=== PATIENT | male | born 1965 | race Caucasian/White ===

== ENCOUNTER 2024-07-28 10:17 | Inpatient (IN) | payer MEDICAID ==
[~2024-07-28] VITALS: Ht 175.3 cm; Wt 67.2 kg
[~2024-07-28 10:17] MED LIST: IBUP-1456 PO
[2024-07-28] MEDS: SODIUM CHLORIDE 0.9% 1,000 ML IV ONE ×2 (11:01→13:59)
[2024-07-28] MEDS: ONDANSETRON HCL 4 MG/2 ML VIAL IV ONE (11:01)
[2024-07-28] MEDS: MORPHINE SULFATE 4 MG/ML SYR/VIAL IV ONE (11:02)
[2024-07-28 11:18] LABS: Hematocrit 53.6 % (41.0-53.0); Hemoglobin 18.3 g/dL (13.5-17.5); Mean Corpuscular Hemoglobin 31.4 pg (28.0-32.0); Mean Corpuscular Hgb Conc. 34.2 g/dL (32.0-36.0); Mean Corpuscular Volume 91.9 fL (80.0-100.0); Platelet Count (auto) 260 10^3/uL (140-450); Red Blood Cells 5.83 10^6/uL (4.5-5.90); Red Cell Distribution Width 13.8 % (11.8-14.3)
[2024-07-28 11:20] LABS: Potassium 4.9 mmol/L (3.5-5.1)
--- NOTE | 2024-07-28 11:20 | ED.PDOC ---
Musculoskeletal HPI Comments 59 year old male presents to the ED with chief complaint of left knee pain. Patient reports that he was seen in the ED on initially for a left knee injury s/p fall. Patient relays that he had been diagnosed with a displaced patella fracture and an appointment set up with Dr. Martel on Monday, however, his pain has been unbearable so he called his office today. Patient states he was advised by Dr. Martel to come into the ED for admission to have the surgery for his knee performed tomorrow. Patient denies any numbness, weakness, chest pain, or SOB. Chief Complaint: Lower Extremity Time Seen by MD: 11:12 Primary Care Provider: TAMANNA Andre Notes: Nurses Notes, Medications, Allergies Allergies: Coded Allergies: NO KNOWN ALLERGIES (Unverified , 07/25/24) Home Meds Active Scripts Ibuprofen (Ibuprofen) 800 Mg Tab, 1 TAB PO TID, #30 TAB Prov:ELE LEACH PA 07/25/24 Reported Medications Omeprazole Magnesium (Omeprazole) 20 Mg Tab, 20 MG PO, TAB 07/28/24 Nitroglycerin (Intra-Anal) (Nitroglycerin) 0.4 % Oin, 0.4 % WI, OIN 07/28/24 Information Source: Patient Mode of Arrival: Ambulatory Location: Left Extremity Location: Knee Timing: Days Prehospital treatment: None Severity: Severe Able to Move Extremity: No Bear Weight: Limited Pain: Severe Mechanism: Blunt Trauma Circumstances: Fall Onset of Symptoms: After Trauma Symptoms: Swelling, Pain DVT Risk Factors: NONE Last Tetanus: Unknown Past Medical History PAST MEDICAL HISTORY: COPD Surgical History: Denies all surgeries Family History Family History: Reviewed,noncontributory to illness Social History Smoker: Cigarettes Alcohol: Denies ETOH Use Drugs: Denies Drug Use Lives In: Home Constitutional: denies: chills, diaphoresis, fatigue, fever, malaise, sweats, weakness, others EENTM: denies: blurred vision, double vision, ear bleeding, ear discharge, ear drainage, ear pain, ear ringing, eye pain, eye redness, hearing loss, mouth pain, mouth swelling, nasal discharge, nose bleeding, nose congestion, nose pain, photophobia, tearing, throat pain, throat swelling, voice changes, others Respiratory: denies: cough, hemoptysis, orthopnea, SOB at rest, shortness of breath, SOB with excertion, stridor, wheezing, others Cardiovascular: denies: chest pain, dizzy spells, diaphoresis, Dyspnea on exertion, edema, irregular heart beat, left arm pain, lightheadedness, palpi tations, PND, syncope, others Gastrointestinal: denies: abdomen distended, abdominal pain, blood streaked bowels, constipated, diarrhea, dysphagia, difficulty swallowing, hematemesis, melena, nausea, poor appetite, poor fluid intake, rectal bleeding, rectal pain, vomiting, others Genitourinary: denies: burning, dysuria, flank pain, frequency, hematuria, incontinence, penile discharge, penile sore, pain, testicle pain, testicle swelling, urgency, others Neurological: denies: dizziness, fainting, headache, left sided numbness, left sided weakness, numbness, paresthesia, pre-existing deficit, right sided numbness, right sided weakness, seizure, speech problems, tingling, tremors, weakness, others Musculoskeletal: reports: others (Left knee pain); denies: back pain, gout, joint pain, joint swelling, muscle pain, muscle stiffness, neck pain Integumetry: denies: bruises, change in color, change in hair/nails, dryness, laceration, lesions, lumps, rash, wounds, others Allergic/Immunocompromised: denies: Difficulty Healing, Frequent Infections, Hives, Itching, others Hematologic/Lymphatic: denies: anemia, blood clots, easy bleeding, easy bruising, swollen glands, others Endocrine: denies: excessive hunger, excessive sweating, excessive thirst, excessive urination, flushing, intolerance to cold, intolerance to heat, unexplained weight gain, unexplained weight loss, others Psychiatric: denies: anxiety, bipolar disorder, depression, hopeless, panic disorder, schizophrenia, sleepless, suicidal, others All Other Systems: Reviewed and Negative Physical Exam General Appearance: No Apparent Distress, Normal HEENT: Normal ENT Inspection, PERRL/EOMI Neck: Full Range of Motion, Non-Tender, Normal, Normal Inspection Respiratory: Chest Non-Tender, Lungs Clear, No Accessory Muscle Use, No Respiratory Distress, Normal Breath Sounds Cardiovascular: No Edema, No JVD, No Murmur, No Gallop, Normal Peripheral Pulses, Regular Rate/Rhythm Breast Exam: Deferred Gastrointestinal: No Organomegaly, Non Tender, No Pulsatile Mass, Normal Bowel Sounds, Soft Genitalia: Deferred Pelvic: Deferred Rectal: Deferred Extremities: No calf tenderness, Normal capillary refill, Normal inspection, Normal range of motion, No pedal edema, Other (Left knee swelling and tenderness) Musculoskeletal : Apperance: Normal Neurologic: Alert, computer programmer II-XII nml as Tested, No Motor Deficits, Normal Affect, Normal Mood, No Sensory Deficits Cerebellar Function: Normal Reflexes: Normal Skin: Dry, Normal Color, Warm Lymphatic: No Adenopathy Was a procedure done? Was a procedure done?: No Differential Diagnosis EXT Differential Diagnosis: Fracture X-Ray, Labs, Meds, VS Vital Signs Date Time Temp Pulse Resp B/P (MAP) Pulse Ox O2 Delivery O2 Flow Rate FiO2 07/28/24 13:50 97.6 95 17 102/64 (77) 99 97.6 07/28/24 11:32 70 15 145/72 07/28/24 11:10 Room Air* 0 21 07/28/24 11:09 97.8 98 17 132/80 (97) 99 97.8 07/28/24 11:02 98 17 132/80 07/28/24 10:38 97.8 100 19 144/81 (102) 95 Lab Test 07/28/24 10:50 Range/Units White Blood Count 7.0 4.4-10.8 10^3/uL Red Blood Count 5.83 4.5-5.90 10^6/uL Hemoglobin 18.3 H 13.5-17.5 g/dL Hematocrit 53.6 H 41.0-53.0 % Mean Corpuscular Volume 91.9 80.0-100.0 fL Mean Corpuscular Hemoglobin 31.4 28.0-32.0 pg Mean Corpuscular Hemoglobin Concent 34.2 32.0-36.0 g/dL Red Cell Distribution Width 13.8 11.8-14.3 % Platelet Count 260 140-450 10^3/uL Mean Platelet Volume 7.1 6.9-10.8 fL Neutrophils (%) (Auto) 37.0-80.0 % Lymphocytes (%) (Auto) 10.0-50.0 % Monocytes (%) (Auto) 0.0-12.0 % Basophils (%) (Auto) 0.0-2.0 % Neutrophils # (Auto) 1.6-8.6 10 ^3/uL Lymphocytes # (Auto) 0.4-5.4 10 ^3/uL Monocytes # (Auto) 0-1.3 10 ^3/uL Differential Total Cells Counted 100.0 100 Neutrophils % (Manual) 72 37.0-80.0 Band Neutrophils % (Manual) 1 Lymphocytes % (Manual) 12 10.0-50.0 Monocytes % (Manual) 15 H 0-12 Eosinophils % (Manual) 0 0-7 Basophils % (Manual) 0 0.0-2.0 Metamyelocytes % (manual) 0 Myelocytes % (Manual) 0 Promyelocytes % (Manual) 0 Blast Cells % (Manual) 0 Reactive Lymphocytes 0 Platelet Estimate Adequate Red Blood Cell Morphology Normal Sodium Level 122 L 136-145 mmol/L Potassium Level 4.9 3.5-5.1 mmol/L Chloride Level 90 L 98-107 mmol/L Carbon Dioxide Level 26 20-31 mmol/L Anion Gap 6 5-15 Blood Urea Nitrogen 6 L 9-23 mg/dL Creatinine 1.02 0.700-1.30 mg/dL Glomerular Filtration Rate Calc 84 >90 mL/min BUN/Creatinine Ratio 5.9 L 10.0-20.0 Serum Glucose 105 74-106 mg/dL Calcium Level 9.7 8.7-10.4 mg/dL Time of 1ST Reevaluation: 12:12 Reevaluation 1ST: Unchanged Patient Education/Counseling: Diagnosis, Treatment Family Education/Counseling: No Family Present Additional Information The following tests were ordered, and results were reviewed by me: CBC, BMP Additional Information was gathered from interviewing the following independent historians: None I reviewed and agreed with the following test results read by other providers: None I discussed treatment and results with medical personnel. Departure 1 Departure Time of Disposition: 17:48 (Patient with displaced fracture left patella and uncontrolled pain. We will admit patient for further workup and expert consultation) Impression: Primary Impression: Displaced fracture of left patella Qualified Codes: S82.042K - Displaced comminuted fracture of left patella, subsequent encounter for closed fracture with nonunion Disposition: ADMITTED INPATIENT Admit to: Med Surg Condition: Serious Critical Care Note Critical Care Time?: No Stability Stability form required: No Heart Score Heart Score: Heart Score Response (Comments) Value History N/A 0 EKG N/A 0 Age N/A 0 Risk Factors N/A 0 Troponin N/A 0 Total 0 I personally scribed for CARLOS RIVERA MD ([email or web address]) on 07/28/24 at 11:20. Electronically submitted by Misbah Rosario ([email or web address]). CARLOS RIVERA MD Jul 28, 2024 11:20
[2024-07-28 11:21] LABS: Anion Gap 6 (5-15); Carbon Dioxide 26 mmol/L (20-31); Chloride 90 mmol/L (98-107); Sodium 122 mmol/L (136-145)
[2024-07-28 11:22] LABS: Calcium 9.7 mg/dL (8.7-10.4)
[2024-07-28 11:24] LABS: Basophils % (manual) 0 (0.0-2.0); Blast Cells 0; Eosinophils % (manual) 0 (0-7); Metamyelocytes % 0; Myelocytes % 0; Promyelocytes % 0; Reactive Lymphocytes 0
[2024-07-28 11:26] LABS: BUN/Creatinine Ratio 5.9 (10.0-20.0); Glucose 105 mg/dL (74-106)
[2024-07-28 11:29] LABS: Blood Urea Nitrogen 6 mg/dL (9-23)
[2024-07-28 12:09] LABS: Band Neutrophils % (manual) 1; Lymphocytes % (manual) 12 (10.0-50.0); Monocytes % (manual) 15 (0-12)
[2024-07-28 12:10] LABS: Platelet Estimate Adequate; RBC Morphology Normal
[2024-07-28] MEDS ORDERED: HYDROcodone-ACET 5/325MG TAB PO PRN (14:30)
[2024-07-28] MEDS ORDERED: ACETAMINOPHEN 325 MG TAB PO PRN (14:30)
[2024-07-28] MEDS ORDERED: ONDANSETRON HCL 4 MG/2 ML VIAL IV PRN (14:30)
--- NOTE | 2024-07-28 14:31 | DVHHP2 ---
History of Present Illness Reason for Visit: Left lower extremity pain History of Present Illness This 59-year-old male with past medical history of COPD and recent patellar fracture presents in the ED with a chief complaint of left knee pain. The patient reports was seen in this ED on and was found to have acute disp laced patella fracture status post mechanical fall. The patient states he had an appointment with ortho Dr. Martel tomorrow but due to the uncontrolled pain the patient decided to come to the emergency department for pain control. Past Medical History COPD Past Surgical History Denies Family History Reviewed, non-contributory to the management of this case. Past Social History Admits to tobacco use one pack per day Denies EtOH or illicit drug use Review of Systems Constitutional: Yes: Weakness; No: Fever, Chills, Sweats, Malaise, Other Eyes: No: Pain, Vision change, Conjunctivae inflammation, Eyelid inflammation, Other, Redness ENT: No: Ear pain, Ear discharge, Nose pain, Nose discharge, Nose congestion, Mouth pain, Mouth swelling, Throat pain, Throat swelling, Other Respiratory: No: Cough, Dry, Shortness of breath, SOB with excertion, Wheezing, Hemoptysis, Pleuritic Pain, Sputum, Wheezing, Other Cardiovascular: No: Chest Pain, Palpitations, Orthopnea, Paroxysmal Noc. Dyspnea, Edema, Lt Headedness, Other Gastrointestinal: No: Nausea, Vomiting, Abdominal Pain, Diarrhea, Constipation, Melena, Hematochezia, Other Genitourinary: No Dysuria, No Frequency, No Incontinence, No Hematuria, No Retention, No Other Musculoskeletal: other (Left lower extremity, knee pain); No: neck pain, shoulder pain, arm pain, back pain, hand pain, leg pain, foot pain Skin: No: Rash, Lesions, Jaundice, Bruising, Other Neurological: No: Weakness, Numbness, Incoordination, Change in speech, Confusion, Seizures, Other Allergies: Coded Allergies: NO KNOWN ALLERGIES (Unverified , 07/25/24) Exam Vital Signs Vital Signs Date Time Temp Pulse Resp B/P (MAP) Pulse Ox O2 Delivery O2 Flow Rate FiO2 07/28/24 13:50 97.6 95 17 102/64 (77) 99 97.6 07/28/24 11:10 Room Air* 0 21 General Appearance: Alert, Oriented X3, Cooperative, mild distress HEENT: Atraumatic, PERRLA, EOMI, Mucous membr. moist/pink Respiratory: Clear to auscultation, Normal air movement Cardiovascular: Regular rate, Normal S1, Normal S2 Abdominal: Normal bowel sounds, Soft, No tenderness, No hepatospenomegaly Extremities: No clubbing, No edema, Normal pulses, Other (Left knee tenderness, using crutches) Skin: No rashes, No breakdown, No significant lesion Neuro: Normal speech, Normal tone, Sensation intact Psych/Mental Status: Mental status NL Labs/Xrays Labs Test 07/28/24 10:50 Range/Units White Blood Count 7.0 4.4-10.8 10^3/uL Red Blood Count 5.83 4.5-5.90 10^6/uL Hemoglobin 18.3 H 13.5-17.5 g/dL Hematocrit 53.6 H 41.0-53.0 % Mean Corpuscular Volume 91.9 80.0-100.0 fL Mean Corpuscular Hemoglobin 31.4 28.0-32.0 pg Mean Corpuscular Hemoglobin Concent 34.2 32.0-36.0 g/dL Red Cell Distribution Width 13.8 11.8-14.3 % Platelet Count 260 140-450 10^3/uL Mean Platelet Volume 7.1 6.9-10.8 fL Neutrophils (%) (Auto) 37.0-80.0 % Lymphocytes (%) (Auto) 10.0-50.0 % Monocytes (%) (Auto) 0.0-12.0 % Basophils (%) (Auto) 0.0-2.0 % Neutrophils # (Auto) 1.6-8.6 10 ^3/uL Lymphocytes # (Auto) 0.4-5.4 10 ^3/uL Monocytes # (Auto) 0-1.3 10 ^3/uL Differential Total Cells Counted 100.0 100 Neutrophils % (Manual) 72 37.0-80.0 Band Neutrophils % (Manual) 1 Lymphocytes % (Manual) 12 10.0-50.0 Monocytes % (Manual) 15 H 0-12 Eosinophils % (Manual) 0 0-7 Basophils % (Manual) 0 0.0-2.0 Metamyelocytes % (manual) 0 Myelocytes % (Manual) 0 Promyelocytes % (Manual) 0 Blast Cells % (Manual) 0 Reactive Lymphocytes 0 Platelet Estimate Adequate Red Blood Cell Morphology Normal Sodium Level 122 L 136-145 mmol/L Potassium Level 4.9 3.5-5.1 mmol/L Chloride Level 90 L 98-107 mmol/L Carbon Dioxide Level 26 20-31 mmol/L Anion Gap 6 5-15 Blood Urea Nitrogen 6 L 9-23 mg/dL Creatinine 1.02 0.700-1.30 mg/dL Glomerular Filtration Rate Calc 84 >90 mL/min BUN/Creatinine Ratio 5.9 L 10.0-20.0 Serum Glucose 105 74-106 mg/dL Calcium Level 9.7 8.7-10.4 mg/dL PROCEDURE(s): LKNE3 - L KNEE 3V XRAY REASON: FALL INJRY ORDER NUMBER(s): [id number], ACCESSION NUMBER(s): [id number] EXAM: XY L KNEE 3V XRAY HISTORY: FALL INJRY COMPARISON: None TECHNIQUE: 3 views of the left knee were performed. FINDINGS: There is an acute distracted transverse fracture through the patella. There is proximal migration of the superior fracture fragment and inferior migration of the inferior fracture fragment. Chondrocalcinosis is present in the lateral c ompartment. Status post ACL repair. Soft tissue swelling in the knee. IMPRESSION: 1. Acute displaced patellar fracture. MRI of the knee without contrast is recommended to assess for extensor mechanism injury. Assessment/Plan Assessment/Plan # Acute displaced patellar fracture, left Admit to m/s unit Consult Dr. Garrison Rest of the orders per surgical team # COPD DuoNeb O2 supplement as needed # tobacco dependence Nicotine patch Smoking cessation counseled High fall risk precaution Medical plan discussed with patient Plan discussed with: Patient My Orders Orders - ANUPAM MAN COMMUNICATIONS STATION MANAGER Procedure Category Date Status Time Admit ADMIT 07/28/24 Verified 14:20 Code Status CODE 07/28/24 Verified 14:20 Hydrocodone-Acet PHA 07/28/24 Verified 5/325mg Tab ([place] 14:30 Ondansetron Hcl PHA 07/28/24 Verified (Zofran) 14:30 Fall Risk Precautions JARET 07/28/[address] 14:20 Complete Blood Count LAB 07/29/24 Verified 04:00 Comprehensive LAB 07/29/24 Verified Metabolic Panel 04:00 Condition: Fair JARET 07/28/24 Verified 14:20 Acetaminophen Tablet PHA 07/28/24 Verified (Tylenol Tablet) 14:30 Morphine Sulfate PHA 07/28/24 Verified Injection 14:30 Date of Service: Jul 28, 2024 Billing Provider: ANUPAM MAN Common Visit Codes: [id number] INP/OBS CARE (HIGH) ANUPAM MANP Jul 28, 2024 14:31
[2024-07-28] MEDS: NICOTINE 14 MG/24HR TOPICAL PATCH TD ONE (14:37)
--- NOTE | 2024-07-28 14:59 | DVH ---
CHEST RADIOGRAPH Indication: cad Technique: Single frontal view of the chest was obtained Comparison: None FINDINGS: Lines and Tubes: None Lungs: Right perihilar infiltrate with interstitial prominence in the right base may represent pneumo mary. No prior studies for comparison Pleura: No effusion. No pneumothorax. Cardiomediastinal contours: Unremarkable Bones: No acute osseous abnormality. IMPRESSION: 1. Prominent perihilar markings and interstitial infiltrate in the right base. Acute versus chronic d isease should be correlated with prior chest x-rays
[2024-07-28 15:20] LABS: INR 0.98 (0.9-1.15); Partial Thromboplastin Time 30.3 SEC (24.5-34.5); Prothrombin Time 10.4 sec (9.3-11.8)
[2024-07-28 19:14] VITALS: BP 127/72; PULSE 95; RESP 20; TEMP 98.2; O2SAT 91
[2024-07-28 19:15] VITALS: PULSE 95; RESP 20; O2SAT 91
[2024-07-28 20:00] VITALS: PULSE 88; RESP 18; O2SAT 97
[2024-07-28] MEDS ORDERED: NITR0.4O2 PR (20:48)
[2024-07-28] MEDS ORDERED: OMEP-434 PO (20:48)
[2024-07-28 21:00] VITALS: BP 108/73; PULSE 88; RESP 19; TEMP 97.9; O2SAT 90
[2024-07-29] VITALS (22 sets, daily range): BP systolic 108–160; BP diastolic 68–99; PULSE 74–105; RESP 14–20; TEMP 97.5–98.7; O2SAT 88–100
[2024-07-29] MEDS: MORPHINE SULFATE INJ 2 MG/ml SYRG IV PRN (00:23)
[2024-07-29 06:44] LABS: Alanine Aminotransferase 26 U/L (7-40); Alkaline Phosphatase 84 U/L (46-116); Anion Gap 4 (5-15); Aspartate Aminotransferase 33 U/L (13-40); Blood Urea Nitrogen 10 mg/dL (9-23); Calcium 9.5 mg/dL (8.7-10.4); Carbon Dioxide 27 mmol/L (20-31); Chloride 101 mmol/L (98-107); Glucose 84 mg/dL (74-106)
[2024-07-29 06:45] LABS: Bilirubin, Total 1.1 mg/dL (0.2-1.0); Total Protein 6.3 g/dL (5.7-8.2)
[2024-07-29 06:53] LABS: Sodium 132 mmol/L (136-145)
--- NOTE | 2024-07-29 07:11 | DVHINCON2 ---
Date of service: Jul 28, 2024 Reason for Consultation Left patella fracture History of Present Illness 59 yo m who came in with displaced left patella fracture from 4 days ago. Patient states hes currently homeless and would have ride issues trying to do this as outpatient so came back to ER. No cp/sob/abd pain/nausea/vomiting. Family History: Patient reports no known family medical history. Allergies: Coded Allergies: NO KNOWN ALLERGIES (Unverified , 07/25/24) Home Meds Active Scripts Ibuprofen (Ibuprofen) 800 Mg Tab, 1 TAB PO TID, #30 TAB Prov:LEE LEACH PA 07/25/24 Reported Medications Omeprazole Magnesium (Omeprazole) 20 Mg Tab, 20 MG PO, TAB 07/28/24 Nitroglycerin (Intra-Anal) (Nitroglycerin) 0.4 % Oin, 0.4 % ME, OIN 07/28/24 Current Medications Current Medications Medications (Trade) Dose Ordered Sig/Sesar Route PRN Reason Start Time Stop Time Status Last Admin Acetaminophen/ Hydrocodone Bitart ([place] 5/325MG Tab) 1 tab Q4HP PRN PO MODERATE PAIN (4-6 PAIN SCALE) 07/28/24 14:30 Ondansetron HCl (Zofran) 4 mg Q4HP PRN IV NAUSEA / VOMITING 07/28/24 14:30 Acetaminophen (Tylenol Tablet) 650 mg Q6HP PRN PO PAIN SCALE 1-3 OR TEMP>100.4 07/28/24 14:30 Morphine Sulfate 2 mg Q4HPRN PRN IV SEVERE PAIN (7-10 PAIN SCALE) 07/28/24 14:30 07/29/24 04:30 Nicotine (Nicoderm 14MG/ 24HR) 1 patch DAILY TD 07/29/24 10:00 Review of Systems 10 point ROS is neg excpet per HPI Vital Signs Vital Signs Date Time Temp Pulse Resp B/P (MAP) Pulse Ox O2 Delivery O2 Flow Rate FiO2 07/29/24 05:00 97.5 92 18 111/71 (84) 89 97.5 07/28/24 20:00 Room Air* 0 21 Physical Exam NAD LLE: +swelling/effusion at knee +TA/GS/EHL/FHL foot wwp Labs/Diagnostic Data Labs Test 07/29/24 05:32 07/28/24 14:25 07/28/24 10:50 Range/Units Sodium Level 132 #L 136-145 mmol/L Potassium Level 5.0 3.5-5.1 mmol/L Chloride Level 101 # 98-107 mmol/L Carbon Dioxide Level 27 20-31 mmol/L Anion Gap 4 L 5-15 Blood Urea Nitrogen 10 9-23 mg/dL Creatinine 1.00 0.700-1.30 mg/dL Glomerular Filtration Rate Calc 86 >90 mL/min BUN/Creatinine Ratio 10.0 10.0-20.0 Serum Glucose 84 74-106 mg/dL Calcium Level 9.5 8.7-10.4 mg/dL Total Bilirubin 1.1 H 0.2-1.0 mg/dL Aspartate Amino Transferase (AST) 33 13-40 U/L Alanine Aminotransferase (ALT) 26 7-40 U/L Alkaline Phosphatase 84 46-116 U/L Total Protein 6.3 5.7-8.2 g/dL Albumin 4.0 3.2-4.8 g/dL Prothrombin Time 10.4 9.3-11.8 sec Prothrombin Time INR 0.98 0.9-1.15 Activated Partial Thromboplast Time 30.3 24.5-34.5 SEC Differential Total Cells Counted 100.0 100 Neutrophils % (Manual) 72 37.0-80.0 Band Neutrophils % (Manual) 1 Lymphocytes % (Manual) 12 10.0-50.0 Monocytes % (Manual) 15 H 0-12 Eosinophils % (Manual) 0 0-7 Basophils % (Manual) 0 0.0-2.0 Metamyelocytes % (manual) 0 Myelocytes % (Manual) 0 Promyelocytes % (Manual) 0 Blast Cells % (Manual) 0 Reactive Lymphocytes 0 Platelet Estimate Adequate Red Blood Cell Morphology Normal Plan/Recommendation 59 yo M with displaced left patella fracture 1. I had a long and thorough discussion with patient family regarding her condition. Nonoperative and operative management discussed in depth. Morbidity and mortality of hip fractures reviewed. Risks include but not exclusive to bleeding infection nerve injury hardware failure nonunion malunion chronic pain blood clots cardiac and pulmonary complications amputation and . They understand fracture may not heal and it may displace. 2. Plan for open reduction internal fixation of left patella fracture with Dr. Rajan/Delonte 3. NPO/IVF 4. pain control Plan discussed with: Patient EVI VARGAS MD Jul 29, 2024 07:11
[2024-07-29 08:28] LABS: Hemoglobin 16.7 g/dL (13.5-17.5); Mean Corpuscular Hemoglobin 31.9 pg (28.0-32.0); Mean Corpuscular Hgb Conc. 34.2 g/dL (32.0-36.0); Mean Corpuscular Volume 93.3 fL (80.0-100.0); Platelet Count (auto) 246 10^3/uL (140-450); Red Blood Cells 5.26 10^6/uL (4.5-5.90); Red Cell Distribution Width 13.7 % (11.8-14.3)
[2024-07-29 08:30] LABS: Basophils % (manual) 0 (0.0-2.0); Blast Cells 0; Metamyelocytes % 0; Myelocytes % 0; Promyelocytes % 0; Reactive Lymphocytes 0
[2024-07-29] MEDS: NICOTINE 14 MG/24HR TOPICAL PATCH TD SCH (08:42)
[2024-07-29 09:05] LABS: Band Neutrophils % (manual) 1; Eosinophils % (manual) 3 (0-7); Lymphocytes % (manual) 12 (10.0-50.0); Monocytes % (manual) 19 (0-12)
[2024-07-29 09:06] LABS: Platelet Estimate Adequate; RBC Morphology Normal
[2024-07-29 10:35] LABS: Urine Bacteria None Seen /hpf (None Seen)
[2024-07-29 11:04] LABS: Urine Blood Negative /uL (Negative); Urine Clarity Clear (Clear); Urine Color Light-Yellow (Yellow); Urine Protein, UAD Negative (Negative); Urine Specific Gravity 1.016 (1.001-1.035); Urine Squamous Epithelial Cell None Seen /hpf (<5); Urine Urobilinogen Normal (Negative); Urine WBC 2 /HPF (0-3)
[2024-07-29 11:13] LABS: Opiate Scree,Urine Pos (NEGATIVE)
[2024-07-29 11:20] LABS: Amphetamine Screen, Urine Neg (NEGATIVE); Barbiturate Scree,Urine Neg (NEGATIVE); Benzodiazephine Screen, Urine Neg (NEGATIVE); Cannabinoid Screen, Urine Neg (NEGATIVE); Cocaine Screen, Urine Neg (NEGATIVE); Phencyclidine Screen, Urine Neg (NEGATIVE)
[2024-07-29] MEDS: IPRATROPIUM BROM 0.5 MG/2.5ML INH SOL NEB SCH (11:27)
[2024-07-29] MEDS: LEVALBUTEROL HCL 1.25 MG/3 ML NEB NEB SCH (11:27)
[2024-07-29] MEDS ORDERED: KETAMINE 50mg/ML 1ml syringe ONE (13:55)
[2024-07-29] MEDS ORDERED: MIDAZOLAM HCL 2MG/2ML 2ml VIAL (1mg/ml) ONE (13:55)
[2024-07-29] MEDS ORDERED: PROPOFOL 10 MG/ML 20 ML IV ONE (13:55)
[2024-07-29] MEDS ORDERED: MORPHINE SULF PF 5 MG/10 ML VIAL ONE (13:55)
[2024-07-29] MEDS ORDERED: GLYCOPYRROLATE 0.2 MG/ML 1ML VIAL ONE (13:55)
[2024-07-29] MEDS ORDERED: fentaNYL CITRATE 100 MCG/2 ML VL ONE (13:55)
[2024-07-29] MEDS ORDERED: ONDANSETRON HCL 4 MG/2 ML VIAL ONE (13:55)
--- NOTE | 2024-07-29 14:17 | DVHPNRES ---
Progress Note Date Seen: Jul 29, 2024 Resident Creating Document: SANTA KRUGER RESIDENT Medical Necessity Reason Pt with a Central, PICC or Fol: No Subjective Review of Systems This is a 59-year-old male with PMH X of COPD, left patellar fracture when he was 18 years old status post repair, nicotine dependence, GERD, chronic hyponatremia who presented to the ER with a chief complaint of pain and swelling of the left knee. Patient initially presented to the ER on 07/26 he was diagnosed with left patellar displaced fracture and orthopedics recommended outpatient follow up. Consequently, he reported intractable pain and worsening swelling for which he presented again to the ER and was admitted to this facility. Orthopedics was consulted and patient was scheduled for internal fixation and open reduction 07/29. Chest x-ray shows left-sided infiltrate but patient refuses chest pain, phlegm or shortness of breaths. He reports chills but denies fever. Social history: Smokes 1.5 pack a day, drinks 2-3 beers Patient seen and examined at the bedside. NPO for surgical procedure. Objective vital signs Vital Sign Date Time Temp Pulse Resp B/P (MAP) Pulse Ox O2 Delivery O2 Flow Rate FiO2 07/29/24 11:33 74 18 100 07/29/24 11:27 Room Air* 0 21 07/29/24 11:27 97.5 111/71 97.5 Total Intake and Output 07/28/24 07/28/24 07/29/24 15:00 23:00 07:00 Intake Total 1000 ml 814 ml Output Total 525 ml Balance 1000 ml 289 ml medications Current Medications Medications Dose Ordered Sig/Sesar Route Start Time Stop Time Status Last Admin Dose Admin Acetaminophen/ Hydrocodone Bitart 1 tab Q4HP PRN PO 07/28/24 14:30 Ondansetron HCl 4 mg Q4HP PRN IV 07/28/24 14:30 Acetaminophen 650 mg Q6HP PRN PO 07/28/24 14:30 Morphine Sulfate 2 mg Q4HPRN PRN IV 07/28/24 14:30 07/29/24 04:30 2 MG Nicotine 1 patch DAILY TD 07/29/24 10:00 07/29/24 08:42 1 PATCH Levalbuterol HCl 0.625 mg Q6HR NEB 07/29/24 12:00 07/29/24 11:27 0.625 MG Ipratropium [place] 0.5 mg Q6HR NEB 07/29/24 12:00 07/29/24 11:27 0.5 MG Pantoprazole Sodium 40 mg DAILY@0600 PO 07/30/24 06:00 Examination Patient lying in bed, in no acute distress General: Well-built, afebrile, palor, mucosae are moist Cardiovascular: Regular S1 and S2. No murmurs, gallops or rubs. No JVD elevation. No pedal edema Respiratory: Normal B/L air entry on room air. Clear lung sounds on auscultation. Decreased expiratory phase Abdomen: Soft, nontender, nondistended, normoactive bowel sounds, no rebound tenderness, no organomegaly, no masses Genitourinary: Deferred MSK/skin: Mobilizes 4 limbs. Skin is dry and warm. Left knee is swollen, tender to deep palpation, bruise seen Neurological: No motor, no sensitive deficits, normal speech. Pupils are isocoric and reactive. Psych/Mental Status: A/Ox3 laboratory and microbiology Laboratory Tests 07/29/24 05:32 Test 07/29/24 05:32 Range/Units Serum Glucose 84 74-106 mg/dL Labs and/or images reviewed: Labs reviewed by me, Image(s) reviewed by me Problem List/Assessment/Plan Problem List/Assessment/Plan Acute displaced left patellar fracture Orthopedics consulted-Plan for open reduction internal fixation of left patella fracture with Dr. 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 Cabrera. Plan discussed with: Patient My Orders My Orders Orders - SANTA KRUGER RESIDENT Procedure Category Date Status Time Levalbuterol Hcl PHA 07/29/24 In Process (Xopenex Medneb) 12:00 Ipratropium Medneb PHA 07/29/24 In Process (Atrovent Medneb) 12:00 * Input Output Clerk CONS 07/29/24 Transmitted Consult Pantoprazole PHA 07/29/24 In Process (Protonix) 11:30 Pantoprazole Tablet PHA 07/30/24 In Process (Protonix Tablet) 06:00 Date of Service: Jul 29, 2024 Billing Provider: MILTON HINOJOSA MD Common Visit Codes: [id number] INP/OBS CARE(HIGH) SANTA KRUGER RESIDENT Jul 29, 2024 14:16 MILTON HINOJOSA MD Jul 30, 2024 23:38
[2024-07-29] MEDS ORDERED: BUPIVACAINE/DEXTROSE MPF 0.75% 2 ML AMP IT ONE (14:22)
[2024-07-29] MEDS: ceFAZolin 2 GM/D5W100ml 100 ML IV ONE (14:25)
[2024-07-29] MEDS: BUPIVACAINE 0.25% INJ 50ML VIAL ONE (14:52)
[2024-07-29] MEDS: TRANEXAMIC ACID 10 ML ONE (14:55)
[2024-07-29] MEDS ORDERED: HYDROCORTISONE SOD SUCC 100 MG/2ML INJ VIAL ONE (14:59)
[2024-07-29] MEDS ORDERED: DexAMETHasone SOD PHOS 10MG/1ML VIAL INJ IV PRN (15:45)
[2024-07-29] MEDS: ONDANSETRON HCL 4 MG/2 ML VIAL IV ONE (15:45)
[2024-07-29] MEDS ORDERED: NALOXONE HCL 0.4 MG/ML VIAL IV PRN (15:45)
[2024-07-29] MEDS ORDERED: diphenhdrAMINE HCL 50 MG/1 ML VL IV PRN (15:45)
[2024-07-29] MEDS ORDERED: ONDANSETRON HCL 4 MG/2 ML VIAL IV PRN (15:45)
[2024-07-29] MEDS: IPRATROPIUM BROM 0.5 MG/2.5ML INH SOL NEB ONE (15:45)
[2024-07-29] MEDS: ALBUTEROL SULF 2.5 MG/0.5ML(0.5%) NEB SOLN NEB ONE (15:45)
[2024-07-29] MEDS: ALBUTEROL SULF 2.5 MG/0.5ML(0.5%) NEB SOLN ONE (16:18)
[2024-07-29] MEDS ORDERED: hydrALAZINE HCL 20 MG/ML VL IV PRN (17:45)
[2024-07-29] MEDS: PANTOPRAZOLE 40 MG/10 ML VIAL INJ IV ONE (18:20)
--- NOTE | 2024-07-29 19:22 | DVH ---
EXAM: XY L KNEE 2V XRAY, XY C ARM FLUOROSCOPY UP TO 60MIN HISTORY: ORIF LEFT PATELLA TECHNIQUE: Intraoperative radiographs of the left knee were obtained. FLUOROSCOPY TIME: 27.0 seconds FLUOROSCOPY IMAGES: 7 TOTAL DOSE: 0.39 mGy COMPARISON: XY L KNEE 3V XRAY on DOS: 07/25/24 FINDINGS/IMPRESSION: Refer to intraoperative report for further evaluation.
[2024-07-29] MEDS: CEFEPIME 1GM/ 50ML 50 ML IV SCH (21:31)
[2024-07-30] VITALS (31 sets, daily range): BP systolic 116–156; BP diastolic 60–95; PULSE 76–101; RESP 14–20; TEMP 97.6–98.6; O2SAT 88–100
[2024-07-30] MEDS: PANTOPRAZOLE 40 MG TAB PO SCH (05:19)
[2024-07-30 07:43] LABS: Hematocrit 46.3 % (41.0-53.0); Hemoglobin 15.7 g/dL (13.5-17.5); Mean Corpuscular Hemoglobin 31.7 pg (28.0-32.0); Mean Corpuscular Hgb Conc. 33.9 g/dL (32.0-36.0); Mean Corpuscular Volume 93.5 fL (80.0-100.0); Platelet Count (auto) 229 10^3/uL (140-450); Red Blood Cells 4.96 10^6/uL (4.5-5.90); Red Cell Distribution Width 13.6 % (11.8-14.3); White Blood Cell 7.6 10^3/uL (4.4-10.8)
[2024-07-30 08:00] LABS: Anion Gap 8 (5-15); Carbon Dioxide 26 mmol/L (20-31)
[2024-07-30 08:06] LABS: BUN/Creatinine Ratio 8.8 (10.0-20.0); Glucose 105 mg/dL (74-106)
[2024-07-30 08:09] LABS: Blood Urea Nitrogen 7 mg/dL (9-23); Chloride 94 mmol/L (98-107); Sodium 128 mmol/L (136-145)
[2024-07-30 08:17] LABS: Band Neutrophils % (manual) 0; Basophils % (manual) 0 (0.0-2.0); Blast Cells 0; Eosinophils % (manual) 0 (0-7); Metamyelocytes % 0; Myelocytes % 0; Promyelocytes % 0; Reactive Lymphocytes 0
[2024-07-30 08:29] LABS: Calcium 9.1 mg/dL (8.7-10.4)
--- NOTE | 2024-07-30 09:08 | DVHOP2 ---
Operative Report - 2 Report Details Date: 07/29/24 Preop Diagnosis: Left patella fracture Postop Diagnosis: Left patella fracture Surgeon: Tommy Martel MD / Satinder CORTEZ Anesthesiologist: Jd CORTEZ Anesthesia: General Implant: [place] patella plate Consent: The patient was informed of the risks and benefits of the procedure. These include but are not limited to complications of anesthesia, postoperative infection, incomplete relief of symptoms, recurrence of symptoms, damage to blood vessels, nerves and tendons, deep venous thrombosis, pulmonary embolism and possible need for repeat surgery in the future. Estimated Blood Loss: 20 cc Indications for Surgery: displaced left patella fracture Name of Procedure Performed Open reduction internal fixation of left patella fracture, left medial and lateral retinaculum repair Procedure Details Procedure Details: The patient was seen in the preoperative holding area where the left lower extremity was marked as the correct site per the preoperative protocol. The patient received IV Ancef for antibiotic prophylaxis. He was then brought back to the operating room where he underwent general anesthesia per the anesthesia service without complications. The left lower extremity was prepped and draped in the usual sterile fashion. The leg was exsanguinated and tourniquet was inflated to 250 mmHg. A midline incision was made curving just slightly medial to distal extent. Sharp dissection was performed down through the skin and subcutaneous tissues. There was noted to be large horizontal fracture of patella. Clot removed and irragted. Patella reduced. Held together with k-wires. Plate placed on patella. Checked under fluoro. Once reduction conformed we willed plate with locking screws under fluro. Attached to plate were three sutures. At that point, #5 Ethibond x2 were used to run a total of 4 strands of suture coming out distally in a running locking-type Krackow stitch. There was excellent tension taken up in the sutures with no gapping noted. The middle two sutures were then passed through the middle hole, followed by the medial and lateral sutures, out through their respective holes. Hemostats were then placed and we felt the repair to take up excellent tension without undue stress to about 30 degrees of knee flexion. At that point, the knee was then extended and the Ethibond sutures were tied. It should be noted that there was excellent stability of the patella within the trochlea without subluxation noted. The repair was reinforced with #1 Vicryl as well as the retinacular extension both medial and lateral. We felt we had an excellent repair. Again, the extremity flexed easily at 30 degrees without undue tension on the repair. Tourniquet was deflated after 30 minutes and hemostasis was achieved. Betadine lavage was undertaken and pulse lavaged with sterile saline. 1 gm vanco powder placed in wound. Local injection of 0.5 marcaine plain and 1 percent lidocaine plain was placed in soft tissue. Subcutaneous tissues were closed with 2-0 Vicryl followed pranav for the skin. A sterile dressing followed by an Keanu wrap was then applied, followed by a knee immobilizer locked in extension. The patient was then awakened in the operating room, extubated and transferred to postanesthesia recovery in stable condition. Condition Good Disposition Still a Patient TOMMY MARTEL MD Jul 30, 2024 09:08
[2024-07-30 09:59] LABS: Lymphocytes % (manual) 7 (10.0-50.0); Monocytes % (manual) 17 (0-12); Platelet Estimate Adequate
--- NOTE | 2024-07-30 12:34 | DVHPN2 ---
Progress Note Progress Note Postop progress note day 1 Left patella fracture open reduction internal fixation S: Reports pain currently 4/10. Reports no acute events over night. Denies numbness/tingling. Denies CP/SOB/palpitations. Denies F/C O: Pt resting comfortably in bed. Examination of the Left knee reveals surgical dressing CDI , drain pulled. Pt is able to dorsiflex and plantar flex toes and ankle (Gastroc, ant tib, peroneals). SILT over the sural, saphenous, tibial, deep and superficial peroneal nerve, medial and lateral plantar nerve distribution patterns. 2+ DP, BCR, euthermic A/P: S/p Left patella fracture open reduction internal fixation. The patient is doing well. Discussed with patient the importance of keeping knee straight using post op brace locked - Pt should continue to work with physical therapy for mobilization. -Ambulation: WBAT LLE with use of FWW for balance and assistance. -DVT proph: Per Medicine team; recs include Aspirin, SCD, BAYLEE hose -Antibiotics: Abx to be completed today -Pain Management: Per medicine Team Disposition : Ortho standpoint patient is a candidate for SNIF DISCHARGE E/M CODE 82808 ICD 10 CODE Z47 0.89 Plan discussed with: Patient, Other (BEDSIDE NURSE) Date of Service: Jul 30, 2024 Billing Provider: ANGELA LE Common Visit Codes: [id number] INP/OBS CARE(MOD) ANGELA LE Jul 30, 2024 12:34
[2024-07-30] MEDS: HYDROcodone-ACET 10/325MG TAB PO PRN (14:55)
--- NOTE | 2024-07-30 16:12 | DVHPNRES ---
Progress Note Date Seen: Jul 30, 2024 Resident Creating Document: SANTA KRUGER RESIDENT Medical Necessity Reason Pt with a Central, PICC or Fol: No Subjective Review of Systems This is a 59-year-old male with PMH X of COPD, left patellar fracture when he was 18 years old status post repair, nicotine dependence, GERD, chronic hyponatremia who presented to the ER with a chief complaint of pain and swelling of the left knee. Patient initially presented to the ER on 07/26 he was diagnosed with left patellar displaced fracture and orthopedics recommended outpatient follow up. Consequently, he reported intractable pain and worsening swelling for which he presented again to the ER and was admitted to this facility. Orthopedics was consulted and patient was scheduled for internal fixation and open reduction 07/29. Chest x-ray shows left-sided infiltrate but patient refuses chest pain, phlegm or shortness of breaths. He reports chills but denies fever. Social history: Smokes 1.5 pack a day, drinks 2-3 beers 07/29-Patient seen and examined at the bedside. NPO for surgical procedure. 07/30-patient seen and examined at bedside. Reports pain in the surgical left knee. Orthopedics recommended SNF, social media community manager consulted Objective vital signs Vital Sign Date Time Temp Pulse Resp B/P (MAP) Pulse Ox O2 Delivery O2 Flow Rate FiO2 07/30/24 14:00 85 18 94 07/30/24 13:36 Nasal Cannula 3.0 07/30/24 13:36 32 07/30/24 12:31 97.9 148/85 (106) 97.9 Total Intake and Output 07/29/24 07/29/24 07/30/24 15:00 23:00 07:00 Intake Total 210 ml 234 ml 490 ml Output Total 425 ml 1200 ml Balance 210 ml -191 ml -710 ml medications Current Medications Medications Dose Ordered Sig/Sesar Route Start Time Stop Time Status Last Admin Dose Admin Ondansetron HCl 4 mg Q4HP PRN IV 07/28/24 14:30 Acetaminophen 650 mg Q6HP PRN PO 07/28/24 14:30 Morphine Sulfate 2 mg Q4HPRN PRN IV 07/28/24 14:30 07/29/24 04:30 2 MG Nicotine 1 patch DAILY TD 07/29/24 10:00 07/30/24 09:18 1 PATCH Levalbuterol HCl 0.625 mg Q6HR NEB 07/29/24 12:00 07/30/24 13:36 0.625 MG Ipratropium [place] 0.5 mg Q6HR NEB 07/29/24 12:00 07/30/24 13:35 0.5 MG Pantoprazole Sodium 40 mg DAILY@0600 PO 07/30/24 06:00 07/30/24 05:19 40 MG Cefepime HCl 50 ml @ 12.5 mls/hr Q12HR IV 07/29/24 22:00 07/30/24 09:17 12.5 MLS/HR Diphenhydramine HCl 25 mg Q4HP PRN IV 07/29/24 15:45 Ondansetron HCl 4 mg Q4HP PRN IV 07/29/24 15:45 Hydralazine HCl 10 mg Q6HP PRN IV 07/29/24 17:45 Acetaminophen/ Hydrocodone Bitart 1 tab Q6HP PRN PO 07/30/24 11:00 07/30/24 14:55 1 TAB Examination Patient lying in bed, in no acute distress General: Well-built, afebrile, palor, mucosae are moist Cardiovascular: Regular S1 and S2. No murmurs, gallops or rubs. No JVD elevation. No pedal edema Respiratory: Normal B/L air entry on room air. Clear lung sounds on auscultation. Decreased expiratory phase Abdomen: Soft, nontender, nondistended, normoactive bowel sounds, no rebound tenderness, no organomegaly, no masses Genitourinary: Deferred MSK/skin: Mobilizes 4 limbs. Skin is dry and warm. Left knee is immobilized, casted. Neurological: No motor, no sensitive deficits, normal speech. Pupils are isocoric and reactive. Psych/Mental Status: A/Ox3 laboratory and microbiology Laboratory Tests 07/30/24 06:35 Test 07/30/24 06:35 Range/Units Serum Glucose 105 74-106 mg/dL Labs and/or images reviewed: Labs reviewed by me, Image(s) reviewed by me Problem List/Assessment/Plan Problem List/Assessment/Plan Acute displaced left patellar fracture status post open reduction and internal fixation 07/29 Orthopedics consulted-Plan for open reduction internal fixation of left patella fracture with Dr. 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 Cabrera. Plan discussed with: Patient My Orders My Orders Orders - SANTA KRUGER Procedure Category Date Status Time Pt Request For Service PT 07/30/24 Logged 07:17 Discontinue Tele JARET 07/30/24 In Process 10:40 Transfer Orders XFER 07/30/24 Transmitted 10:40 Hydrocodone-Acet PHA 07/30/24 In Process 10/325mg Tab ([place] 11:00 * Contact Center Engineer CONS 07/30/24 Transmitted Consult Dietary Evaluation Review Comments: Avoid nicotine, monitor PO intake to meet 75% of his needs Expected Outcomes/Goals: gradual wt gain and improved nutrition status Date of Service: Jul 30, 2024 Billing Provider: MILTON HINOJOSA MD Common Visit Codes: [id number] INP/OBS CARE(HIGH) SANTA KRUGER Jul 30, 2024 16:12 MILTON HINOJOSA MD Jul 30, 2024 23:46
[2024-07-31] VITALS (15 sets, daily range): BP systolic 125–167; BP diastolic 74–87; PULSE 70–94; RESP 12–19; TEMP 97.9–98.6; O2SAT 94–100
[2024-07-31 06:26] LABS: Anion Gap 5 (5-15); Calcium 9.8 mg/dL (8.7-10.4); Carbon Dioxide 31 mmol/L (20-31); Potassium 4.2 mmol/L (3.5-5.1)
[2024-07-31 06:32] LABS: BUN/Creatinine Ratio 13.5 (10.0-20.0); Blood Urea Nitrogen 10 mg/dL (9-23)
[2024-07-31 06:38] LABS: Chloride 92 mmol/L (98-107); Glucose 109 mg/dL (74-106); Sodium 128 mmol/L (136-145)
--- NOTE | 2024-07-31 14:52 | DVHDSRES ---
Discharge Summary Date of Admission Resident Creating Document: SANTA KRUGER RESIDENT Jul 28, 2024 at 14:20 Date of Discharge: Aug 02, 2024 Labs/Diagnostic Data: Laboratory Results Test 07/31/24 05:15 07/30/24 06:35 07/29/24 10:25 07/29/24 05:32 Sodium Level 128 mmol/L (136-145) Potassium Level 4.2 mmol/L (3.5-5.1) Chloride Level 92 mmol/L (98-107) Carbon Dioxide Level 31 mmol/L (20-31) Anion Gap 5 (5-15) Blood Urea Nitrogen 10 mg/dL (9-23) Creatinine 0.74 mg/dL (0.700-1.30) Glomerular Filtration Rate Calc 103 mL/min (>90) BUN/Creatinine Ratio 13.5 (10.0-20.0) Serum Glucose 109 mg/dL (74-106) Calcium Level 9.8 mg/dL (8.7-10.4) White Blood Count 7.6 10^3/uL (4.4-10.8) Red Blood Count 4.96 10^6/uL (4.5-5.90) Hemoglobin 15.7 g/dL (13.5-17.5) Hematocrit 46.3 % (41.0-53.0) Mean Corpuscular Volume 93.5 fL (80.0-100.0) Mean Corpuscular Hemoglobin 31.7 pg (28.0-32.0) Mean Corpuscular Hemoglobin Concent 33.9 g/dL (32.0-36.0) Red Cell Distribution Width 13.6 % (11.8-14.3) Platelet Count 229 10^3/uL (140-450) Mean Platelet Volume 7.0 fL (6.9-10.8) Neutrophils (%) (Auto) % (37.0-80.0) Lymphocytes (%) (Auto) % (10.0-50.0) Monocytes (%) (Auto) % (0.0-12.0) Basophils (%) (Auto) % (0.0-2.0) Neutrophils # (Auto) 10 ^3/uL (1.6-8.6) Lymphocytes # (Auto) 10 ^3/uL (0.4-5.4) Monocytes # (Auto) 10 ^3/uL (0-1.3) Differential Total Cells Counted 100.0 (100) Neutrophils % (Manual) 76 (37.0-80.0) Band Neutrophils % (Manual) 0 Lymphocytes % (Manual) 7 (10.0-50.0) Monocytes % (Manual) 17 (0-12) Eosinophils % (Manual) 0 (0-7) Basophils % (Manual) 0 (0.0-2.0) Metamyelocytes % (manual) 0 Myelocytes % (Manual) 0 Promyelocytes % (Manual) 0 Blast Cells % (Manual) 0 Reactive Lymphocytes 0 Platelet Estimate Adequate Urine Color Light-yellow (Yellow) Urine Clarity Clear (Clear) Urine pH 6.0 (5.0-9.0) Urine Specific [place] 1.016 (1.001-1.035) Urine Protein Negative (Negative) Urine Ketones Negative (Negative) Urine Blood Negative /uL (Negative) Urine Nitrite Negative (Negative) Urine Bilirubin Negative (Negative) Urine Urobilinogen Normal mg/dL (Negative) Urine Leukocyte Esterase Negative /uL (Negative) Urine RBC None seen /hpf (0 - 3) Urine Microscopic WBC 2 /HPF (0-3) Urine Squamous Epithelial Cells None seen /hpf (<5) Urine Bacteria None seen /hpf (None Seen) Urine Osmolality 585 mOsm/kg Urine Sodium 109 mmol/L (40-220) Urine Glucose Normal mg/dL (Normal) Urine Opiates Screen Pos (NEGATIVE) Urine Fentanyl Screen Neg (NEGATIVE) Urine Barbiturates Screen Neg (NEGATIVE) Urine Phencyclidine Screen Neg (NEGATIVE) Urine Amphetamines Screen Neg (NEGATIVE) Urine Benzodiazepines Screen Neg (NEGATIVE) Urine Cocaine Screen Neg (NEGATIVE) Urine Cannabinoids Screen Neg (NEGATIVE) Red Blood Cell Morphology Normal Serum Osmolality 277 mOsm/kg (278-298) Magnesium Level 2.3 mg/dL (1.6-2.6) Total Bilirubin 1.1 mg/dL (0.2-1.0) Aspartate Amino Transferase (AST) 33 U/L (13-40) Alanine Aminotransferase (ALT) 26 U/L (7-40) Alkaline Phosphatase 84 U/L (46-116) Total Protein 6.3 g/dL (5.7-8.2) Albumin 4.0 g/dL (3.2-4.8) Vitamin B12 Level 733 pg/mL (211-911) Vitamin D 25-Hydroxy 45.6 ng/mL (30.0-100) Thyroid Stimulating Hormone (TSH) 2.05 uIU/mL (0.55-4.78) Test 07/28/24 14:25 Prothrombin Time 10.4 sec (9.3-11.8) Prothrombin Time INR 0.98 (0.9-1.15) Activated Partial Thromboplast Time 30.3 SEC (24.5-34.5) Other Laboratory Tests 07/31/24 05:15 07/30/24 06:35 Brief Hx & Hospital Course: This is a 59-year-old male with PMH X of COPD, left patellar fracture when he was 18 years old status post repair, nicotine dependence, GERD, chronic hyponatremia who presented to the ER with a chief complaint of pain and swelling of the left knee. Patient initially presented to the ER on 07/26 he was diagnosed with left patellar displaced fracture and orthopedics recommended outpatient follow up. Consequently, he reported intractable pain and worsening swelling for which he presented again to the ER and was admitted to this facility. Orthopedics was consulted and patient was scheduled for internal fixation and open reduction 07/29. Chest x-ray shows left-sided infiltrate but patient refuses chest pain, phlegm or shortness of breaths. He reports chills but denies fever. Social history: Smokes 1.5 pack a day, drinks 2-3 beers 07/29-Patient seen and examined at the bedside. NPO for surgical procedure. 07/30-patient seen and examined at bedside. Reports pain in the surgical left knee. Orthopedics recommended SNF, licensed master social worker consulted 07/31-patient seen and examined at the bedside. Reports that the pain is better, patient is following with physical therapy twice daily in the hospital. During the hospital stay, Orthopedics was consulted-recommended open repair and internal fixation which the patient underwent 07/30. Adequate pain control was achieved with morphine and [place]. Physical therapy was consulted, patient was allowed weight-bearing as tolerated. He underwent continuous physical therapy twice daily during his stay. Orthopedics recommended residential facility for rehab and PT. Discharge was delayed given the pending acceptance at SNF.. 08/02-patient is hemodynamically stable, has adequate pain control, is following with physical therapy thrice a day, therefore is being discharged home. Patient agreed to discharge planning. 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 These include but are not limited to complications of anesthesia, postoperative infection, incomplete relief of symptoms, recurrence of symptoms, damage to blood vessels, nerves and tendons, deep venous thrombosis, pulmonary embolism and possible need for repeat surgery in the future. Estimated Blood Loss: 20 cc Indications for Surgery: displaced left patella fracture Name of Procedure Performed Open reduction internal fixation of left patella fracture, left medial and lateral retinaculum repair Procedure Details Procedure Details: The patient was seen in the preoperative holding area where the left lower extremity was marked as the correct site per the preoperative protocol. The patient received IV Ancef for antibiotic prophylaxis. He was then brought back to the operating room where he underwent general anesthesia per the anesthesia service without complications. The left lower extremity was prepped and draped in the usual sterile fashion. The leg was exsanguinated and tourniquet was inflated to 250 mmHg. A midline incision was made curving just slightly medial to distal extent. Sharp dissection was performed down through the skin and subcutaneous tissues. There was noted to be large horizontal fracture of patella. Clot removed and irragted. Patella reduced. Held together with k-wires. Plate placed on patella. Checked under fluoro. Once reduction conformed we willed plate with locking screws under fluro. Attached to plate were three sutures. At that point, #5 Ethibond x2 were used to run a total of 4 strands of suture coming out distally in a running locking-type Krackow stitch. There was excellent tension taken up in the sutures with no gapping noted. The middle two sutures were then passed through the middle hole, followed by the medial and lateral sutures, out through their respective holes. Hemostats were then placed and we felt the repair to take up excellent tension without undue stress to about 30 degrees of knee flexion. At that point, the knee was then extended and the Ethibond sutures were tied. It should be noted that there was excellent stability of the patella within the trochlea without subluxation noted. The repair was reinforced with #1 Vicryl as well as the retinacular extension both medial and lateral. We felt we had an excellent repair. Again, the extremity flexed easily at 30 degrees without undue tension on the repair. Tourniquet was deflated after 30 minutes and hemostasis was achieved. Betadine lavage was undertaken and pulse lavaged with sterile saline. 1 gm vanco powder placed in wound. Local injection of 0.5 marcaine plain and 1 percent lidocaine plain was placed in soft tissue. Subcutaneous tissues were closed with 2-0 Vicryl followed pranav for the skin. A sterile dressing followed by an Keanu wrap was then applied, followed by a knee immobilizer locked in extension. The patient was then awakened in the operating room, extubated and transferred to postanesthesia recovery in stable condition. Condition Good Disposition 2 Still a Patient TOMMY MARTEL MD Jul 30, 2024 09:08 DICTATED BY:TOMMY MARTEL MD DICTATED DATE/TIME:07/30/24 0908 ELECTRONICALLY SIGNED BY:TOMMY MARTEL MD 07/30/24 0908 ELECTRONICALLY CO-SIGNED BY: Condition at Discharge: Good Final Diagnosis/Problems List Acute displaced left patellar fracture status post open reduction and internal fixation 07/29 COPD, no exacerbation Chronic nicotine dependence GERD Chronic alcoholic dependence Hyponatremia secondary to [facility] Homelessness Discharge Disposition: [facility] Facility Discharge Instruct/Medications Diet: Regular Activity: Light activity Follow Up/Referral: Follow up with primary care physician within 7 days Follow up with orthopedics as outpatient within 7 days Medications: Per EMR Discharge Statement: "Patient was advised to return to the ER or call 911 if any headaches, dizziness, shortness of breath, chest pain, abdominal pain, bleeding, fevers, or worsening of medical condition. Patient was counseled about treatment plan, medications, possible side effects, patientverbalized understanding. All questions were answered to the best of my ability. 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
--- NOTE | 2024-07-31 16:50 | DVHPNRES ---
Progress Note Date Seen: Jul 31, 2024 Resident Creating Document: SANTA KRUGER RESIDENT Medical Necessity Reason Pt with a Central, PICC or Fol: No Subjective Review of Systems This is a 59-year-old male with PMH X of COPD, left patellar fracture when he was 18 years old status post repair, nicotine dependence, GERD, chronic hyponatremia who presented to the ER with a chief complaint of pain and swelling of the left knee. Patient initially presented to the ER on 07/26 he was diagnosed with left patellar displaced fracture and orthopedics recommended outpatient follow up. Consequently, he reported intractable pain and worsening swelling for which he presented again to the ER and was admitted to this facility. Orthopedics was consulted and patient was scheduled for internal fixation and open reduction 07/29. Chest x-ray shows left-sided infiltrate but patient refuses chest pain, phlegm or shortness of breaths. He reports chills but denies fever. Social history: Smokes 1.5 pack a day, drinks 2-3 beers 07/29-Patient seen and examined at the bedside. NPO for surgical procedure. 07/30-patient seen and examined at bedside. Reports pain in the surgical left knee. Orthopedics recommended SNF, mental health social worker consulted 07/31-patient seen and examined at the bedside. Reports that the pain is better, patient is following with physical therapy twice daily in the hospital. Objective vital signs Vital Sign Date Time Temp Pulse Resp B/P (MAP) Pulse Ox O2 Delivery O2 Flow Rate FiO2 07/31/24 13:18 98.1 85 16 138/87 (104) 96 98.1 07/31/24 12:45 Nasal Cannula* 2 28 Total Intake and Output 07/30/24 07/30/24 07/31/24 15:00 23:00 07:00 Intake Total 0 ml 1000 ml 1550 ml Output Total 700 ml 1350 ml Balance 0 ml 300 ml 200 ml medications Current Medications Medications Dose Ordered Sig/Sesar Route Start Time Stop Time Status Last Admin Dose Admin Acetaminophen 650 mg Q6HP PRN PO 07/28/24 14:30 Morphine Sulfate 2 mg Q4HPRN PRN IV 07/28/24 14:30 07/31/24 05:20 2 MG Nicotine 1 patch DAILY TD 07/29/24 10:00 07/31/24 09:29 1 PATCH Levalbuterol HCl 0.625 mg Q6HR NEB 07/29/24 12:00 07/31/24 12:45 0.625 MG Ipratropium [place] 0.5 mg Q6HR NEB 07/29/24 12:00 07/31/24 12:45 0.5 MG Pantoprazole Sodium 40 mg DAILY@0600 PO 07/30/24 06:00 07/31/24 05:20 40 MG Cefepime HCl 50 ml @ 12.5 mls/hr Q12HR IV 07/29/24 22:00 07/31/24 09:25 12.5 MLS/HR Diphenhydramine HCl 25 mg Q4HP PRN IV 07/29/24 15:45 Ondansetron HCl 4 mg Q4HP PRN IV 07/29/24 15:45 Hydralazine HCl 10 mg Q6HP PRN IV 07/29/24 17:45 Acetaminophen/ Hydrocodone Bitart 1 tab Q6HP PRN PO 07/30/24 11:00 07/31/24 14:34 1 TAB Examination Patient lying in bed, in no acute distress General: Well-built, afebrile, palor, mucosae are moist Cardiovascular: Regular S1 and S2. No murmurs, gallops or rubs. No JVD elevation. No pedal edema Respiratory: Normal B/L air entry on room air. Clear lung sounds on auscultation. Decreased expiratory phase Abdomen: Soft, nontender, nondistended, normoactive bowel sounds, no rebound tenderness, no organomegaly, no masses Genitourinary: Deferred MSK/skin: Mobilizes 4 limbs. Skin is dry and warm. Left knee is immobilized, casted. Neurological: No motor, no sensitive deficits, normal speech. Pupils are isocoric and reactive. Psych/Mental Status: A/Ox3 laboratory and microbiology Laboratory Tests 07/31/24 05:15 07/30/24 06:35 Test 07/31/24 05:15 Range/Units Serum Glucose 109 H 74-106 mg/dL Labs and/or images reviewed: Labs reviewed by me, Image(s) reviewed by me Problem List/Assessment/Plan Problem List/Assessment/Plan Acute displaced left patellar fracture status post open reduction and internal fixation 07/29 Orthopedics consulted-Plan for open reduction internal fixation of left patella fracture with Dr. Rajan/Delonte Adequate pain control and DC planning to SNF Orthopedics recommended weight-bearing as tolerated with knee brace 07/31- Reports that the pain is better, patient is following with physical therapy twice daily in the hospital. 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 Cabrera. Plan discussed with: Patient My Orders My Orders Orders - SANTA KRUGER Procedure Category Date Status Time Discharge DISCHARGE 07/31/24 Transmitted 14:50 Dietary Evaluation Review Comments: Avoid nicotine, monitor PO intake to meet 75% of his needs Expected Outcomes/Goals: gradual wt gain and improved nutrition status SANTA KRUGER RESIDENT Jul 31, 2024 16:50
[2024-08-01] VITALS (17 sets, daily range): BP systolic 129–153; BP diastolic 71–90; PULSE 61–97; RESP 12–19; TEMP 97.4–98.9; O2SAT 90–99
--- NOTE | 2024-08-01 17:45 | DVHPNRES ---
Progress Note Date Seen: Aug 01, 2024 Resident Creating Document: SANTA KRUGER RESIDENT Medical Necessity Reason Pt with a Central, PICC or Fol: No Subjective Review of Systems This is a 59-year-old male with PMH X of COPD, left patellar fracture when he was 18 years old status post repair, nicotine dependence, GERD, chronic hyponatremia who presented to the ER with a chief complaint of pain and swelling of the left knee. Patient initially presented to the ER on 07/26 he was diagnosed with left patellar displaced fracture and orthopedics recommended outpatient follow up. Consequently, he reported intractable pain and worsening swelling for which he presented again to the ER and was admitted to this facility. Orthopedics was consulted and patient was scheduled for internal fixation and open reduction 07/29. Chest x-ray shows left-sided infiltrate but patient refuses chest pain, phlegm or shortness of breaths. He reports chills but denies fever. Social history: Smokes 1.5 pack a day, drinks 2-3 beers 07/29-Patient seen and examined at the bedside. NPO for surgical procedure. 07/30-patient seen and examined at bedside. Reports pain in the surgical left knee. Orthopedics recommended SNF, director social consulted 07/31-patient seen and examined at the bedside. Reports that the pain is better, patient is following with physical therapy twice daily in the hospital. 08/01-patient seen and examined at bedside. No acute distress, physical therapy on the case, patient gaining strength. Objective vital signs Vital Sign Date Time Temp Pulse Resp B/P (MAP) Pulse Ox O2 Delivery O2 Flow Rate FiO2 08/01/24 16:47 97.9 61 14 142/89 (106) 94 97.9 08/01/24 13:18 Nasal Cannula* 2 28 Total Intake and Output 07/31/24 07/31/24 08/01/24 15:00 23:00 07:00 Intake Total 50 ml 1350 ml 700 ml Output Total 600 ml 2500 ml Balance 50 ml 750 ml -1800 ml medications Current Medications Medications Dose Ordered Sig/Sesar Route Start Time Stop Time Status Last Admin Dose Admin Acetaminophen 650 mg Q6HP PRN PO 07/28/24 14:30 Morphine Sulfate 2 mg Q4HPRN PRN IV 07/28/24 14:30 07/31/24 05:20 2 MG Nicotine 1 patch DAILY TD 07/29/24 10:00 08/01/24 09:34 1 PATCH Levalbuterol HCl 0.625 mg Q6HR NEB 07/29/24 12:00 08/01/24 13:18 0.625 MG Ipratropium [place] 0.5 mg Q6HR NEB 07/29/24 12:00 08/01/24 13:18 0.5 MG Pantoprazole Sodium 40 mg DAILY@0600 PO 07/30/24 06:00 08/01/24 05:23 40 MG Cefepime HCl 50 ml @ 12.5 mls/hr Q12HR IV 07/29/24 22:00 08/01/24 09:33 12.5 MLS/HR Diphenhydramine HCl 25 mg Q4HP PRN IV 07/29/24 15:45 Ondansetron HCl 4 mg Q4HP PRN IV 07/29/24 15:45 Hydralazine HCl 10 mg Q6HP PRN IV 07/29/24 17:45 Acetaminophen/ Hydrocodone Bitart 1 tab Q6HP PRN PO 07/30/24 11:00 08/01/24 17:06 1 TAB Examination Patient lying in bed, in no acute distress General: Well-built, afebrile, palor, mucosae are moist Cardiovascular: Regular S1 and S2. No murmurs, gallops or rubs. No JVD elevation. No pedal edema Respiratory: Normal B/L air entry on room air. Clear lung sounds on auscultation. Decreased expiratory phase Abdomen: Soft, nontender, nondistended, normoactive bowel sounds, no rebound tenderness, no organomegaly, no masses Genitourinary: Deferred MSK/skin: Mobilizes 4 limbs. Skin is dry and warm. Left knee is immobilized, casted. Neurological: No motor, no sensitive deficits, normal speech. Pupils are isocoric and reactive. Psych/Mental Status: A/Ox3 laboratory and microbiology Laboratory Tests 07/31/24 05:15 07/30/24 06:35 Test 07/31/24 05:15 Range/Units Serum Glucose 109 H 74-106 mg/dL Labs and/or images reviewed: Labs reviewed by me, Image(s) reviewed by me Problem List/Assessment/Plan Problem List/Assessment/Plan Acute displaced left patellar fracture status post open reduction and internal fixation 07/29 Orthopedics consulted-Plan for open reduction internal fixation of left patella fracture with Dr. Rajan/Delonte Adequate pain control and DC planning to SNF Orthopedics recommended weight-bearing as tolerated with knee brace 07/31- Reports that the pain is better, patient is following with physical therapy twice daily in the hospital. 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 Cabrera. Plan discussed with: Patient Dietary Evaluation Review Comments: Avoid nicotine, monitor PO intake to meet 75% of his needs Expected Outcomes/Goals: gradual wt gain and improved nutrition status SANTA KRUGER RESIDENT Aug 01, 2024 17:45
[2024-08-02] VITALS (9 sets, daily range): BP systolic 127–137; BP diastolic 77–79; PULSE 81–91; RESP 16–19; TEMP 97.7–98.6; O2SAT 91–100
[2024-08-02 06:17] LABS: Anion Gap 8 (5-15); Calcium 10.1 mg/dL (8.7-10.4); Carbon Dioxide 29 mmol/L (20-31); Potassium 4.4 mmol/L (3.5-5.1)
[2024-08-02 06:23] LABS: BUN/Creatinine Ratio 15.5 (10.0-20.0); Blood Urea Nitrogen 11 mg/dL (9-23); Glucose 96 mg/dL (74-106); Magnesium 2.3 mg/dL (1.6-2.6)
[2024-08-02 06:41] LABS: Chloride 92 mmol/L (98-107); Sodium 129 mmol/L (136-145)
--- NOTE | 2024-08-02 17:54 | DVHPNRES ---
Progress Note Date Seen: Aug 02, 2024 Resident Creating Document: SANTA KRUGER RESIDENT Medical Necessity Reason Pt with a Central, PICC or Fol: No Subjective Review of Systems This is a 59-year-old male with PMH X of COPD, left patellar fracture when he was 18 years old status post repair, nicotine dependence, GERD, chronic hyponatremia who presented to the ER with a chief complaint of pain and swelling of the left knee. Patient initially presented to the ER on 07/26 he was diagnosed with left patellar displaced fracture and orthopedics recommended outpatient follow up. Consequently, he reported intractable pain and worsening swelling for which he presented again to the ER and was admitted to this facility. Orthopedics was consulted and patient was scheduled for internal fixation and open reduction 07/29. Chest x-ray shows left-sided infiltrate but patient refuses chest pain, phlegm or shortness of breaths. He reports chills but denies fever. Social history: Smokes 1.5 pack a day, drinks 2-3 beers 07/29-Patient seen and examined at the bedside. NPO for surgical procedure. 07/30-patient seen and examined at bedside. Reports pain in the surgical left knee. Orthopedics recommended SNF, manager social responsibility consulted 07/31-patient seen and examined at the bedside. Reports that the pain is better, patient is following with physical therapy twice daily in the hospital. 08/01-patient seen and examined at bedside. No acute distress, physical therapy on the case, patient gaining strength. 08/02-patient seen and examined at the bedside. Undergoing physical therapy, planning to be discharged today. Objective vital signs Vital Sign Date Time Temp Pulse Resp B/P (MAP) Pulse Ox O2 Delivery O2 Flow Rate FiO2 08/02/24 11:36 82 16 100 08/02/24 11:30 Nasal Cannula 2.0 08/02/24 11:30 28 08/02/24 09:00 98.6 131/77 (95) 98.6 Total Intake and Output 08/01/24 08/01/24 08/02/24 15:00 23:00 07:00 Intake Total 50 ml 600 ml 1225 ml Output Total 1000 ml 2350 ml Balance 50 ml -400 ml -1125 ml Examination Patient lying in bed, in no acute distress General: Well-built, afebrile, palor, mucosae are moist Cardiovascular: Regular S1 and S2. No murmurs, gallops or rubs. No JVD elevation. No pedal edema Respiratory: Normal B/L air entry on room air. Clear lung sounds on auscultation. Decreased expiratory phase Abdomen: Soft, nontender, nondistended, normoactive bowel sounds, no rebound tenderness, no organomegaly, no masses Genitourinary: Deferred MSK/skin: Mobilizes 4 limbs. Skin is dry and warm. Left knee is immobilized, casted. Neurological: No motor, no sensitive deficits, normal speech. Pupils are isocoric and reactive. Psych/Mental Status: A/Ox3 laboratory and microbiology Laboratory Tests 08/02/24 04:42 07/30/24 06:35 Test 08/02/24 04:42 Range/Units Serum Glucose 96 74-106 mg/dL Labs and/or images reviewed: Labs reviewed by me, Image(s) reviewed by me Problem List/Assessment/Plan Problem List/Assessment/Plan Acute displaced left patellar fracture status post open reduction and internal fixation 07/29 Orthopedics consulted-Plan for open reduction internal fixation of left patella fracture with Dr. Rajan/Delonte Adequate pain control and DC planning to SNF Orthopedics recommended weight-bearing as tolerated with knee brace 07/31- Reports that the pain is better, patient is following with physical therapy twice daily in the hospital. 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 Plan discussed with patient in which all questions have been answered Goals of care discussed for more than 30 minutes, full code status Case discussed with Dr. Cabrera. Plan discussed with: Patient Dietary Evaluation Review Comments: Avoid nicotine, monitor PO intake to meet 75% of his needs Expected Outcomes/Goals: gradual wt gain and improved nutrition status SANTA KRUGER RESIDENT Aug 02, 2024 17:54
== END 2024-08-02 12:55 | DRG 320 ==
LOC: ER 10:17 → OVERFLOW 14:20 → WEST WING 14:23 → TELE-WESTW 07-29 16:53 → WEST WING 07-30 16:36
PROVIDERS: ADMIT Student in an Organized Health Care Education/Training Program; ATTEND Student in an Organized Health Care Education/Training Program
PROC: 0QSF04Z Reposition Left Patella with Internal Fixation Device, Open Approach (ICD-10-PCS; principal; 2024-07-29 14:26)
DX: S82.042A Displaced comminuted fracture of left patella, initial encounter for closed fracture (principal); E87.1 Hypo-osmolality and hyponatremia; J44.9 Chronic obstructive pulmonary disease, unspecified; K21.9 Gastro-esophageal reflux disease without esophagitis; F17.210 Nicotine dependence, cigarettes, uncomplicated; Z79.899 Other long term (current) drug therapy; Z71.6 Tobacco abuse counseling; Z59.00 Homelessness unspecified; W18.39XA Other fall on same level, initial encounter; Y93.89 Activity, other specified; Y92.89 Other specified places as the place of occurrence of the external cause; Y99.8 Other external cause status
CPT/HCPCS: 36415; 71045; 73560; 76000; 80048; 80053; 80307; 81001; 82306; 82607; 83735; 83930; 83935; 84300; 84443; 85007; 85027; 85610; 85730; 86850; 86900; 86901; 94640; 97110; 97116; 97163; G0378; J2250; J2405; J2470; J2704; J3490